=== PATIENT | female | born 1975 | race African-American/Black ===

== ENCOUNTER 2021-10-09 10:02 | Inpatient (IN) ==
[2021-10-03 12:25] LABS: Amorphous Crystals,Urine Many /HPF (Few); Bilirubin,Urine Negative (Negative); Blood, Urine Negative (Negative); Glucose,Urine (UA) Negative (Negative); Ketones,Urine Negative (Negative); Nitrite,Urine Negative (Negative); Protein,Urine Negative; Urine Appearance CLOUDY (Clear); Urine Color Yellow (Yellow); Urine Specific Gravity 1.028 (1.001-1.035); Urine Urobilinogen < 2.0 EU/DL (<2.0)
[2021-10-03 12:43] LABS: Albumin 3.1 G/DL (3.4-5.0); Bilirubin,Total 0.5 MG/DL (0.20-1.00); Calcium 9.1 MG/DL (8.5-10.1); Osmolality,Calculated 281.3 MOS/KG (273-304); Risk Ratio 2.32; Total Protein 7.2 G/DL (6.4-8.2); VLDL Cholesterol 12.2 MG/DL
[2021-10-03 12:45] LABS: Basophils % 0.5 % (0.0-0.8); Eosinophils # 0.1 10*3/uL (0.0-0.87); Eosinophils % 1.6 % (0.00-10.9); Hematocrit 34.7 VOL% (35.7-47.0); Hemoglobin 9.8 GM/DL (12.0-16.0); Immature Granulocytes % 0.4 %; Immature Granulocytes Absolute 0.03 #; Lymphocytes # 2.4 10*3/uL (1.4-4.0); Lymphocytes % 29.5 % (21.3-54.2); Mean Corpuscular HGB Conc 28.2 GM/DL (32-36); Mean Corpuscular Volume 74.3 FL (87-102); Mean Platelet Volume 9.6 FL (9.6-12.0); Monocytes % 5.3 % (1.7-12.7); Neutrophils % 62.7 % (38.7-73.9); Platelet Count 361 T/CUMM (130-400); Red Blood Count 4.67 MC/CUMM (3.8-5.5); Red Cell Distribution Width 15.9 % (9.3-17.3)
[2021-10-03 12:48] LABS: Anisocytosis 1+; Hypochromia 1+; Microcytosis 1+; Polychromasia 1+; Target Cells Few
[2021-10-03 12:49] LABS: Platelet Estimate Normal
[2021-10-03 13:14] LABS: HIV Antigen/Antibody Result Nonreactive (Nonreactive)
[~2021-10-09 10:02] MED LIST: AMPICILLIN/SULBACTAM 3,000 MG in SODIUM CHLORIDE 0.9% 100 ML IV ONE; LACTATED RINGERS 1,000 ML IV SCH
[2021-10-09] MEDS ORDERED: FAMOTIDINE 20 MG TABLET PO ONE (10:51)
[2021-10-09] MEDS ORDERED: DIAZEPAM 5 MG TABLET PO ONE (10:51)
[2021-10-09] MEDS ORDERED: propofoL 200 MG/20 ML VIAL IV ONE (13:48)
[2021-10-09] MEDS ORDERED: ROCURONIUM 50 MG/5 ML VIAL IV ONE (13:48)
[2021-10-09] MEDS ORDERED: LIDOCAINE 2% 5 ML VIAL ONE (13:48)
[2021-10-09] MEDS ORDERED: fentaNYL 100 MCG/2 ML VIAL ONE ×2 (13:49→14:43)
[2021-10-09] MEDS ORDERED: MIDAZOLAM 2 MG/2 ML VIAL ONE (13:50)
[2021-10-09] MEDS ORDERED: fentaNYL 250 MCG/5 ML VIAL ONE (14:04)
[2021-10-09] MEDS ORDERED: SCOPOLAMINE 1.5 MG PATCH TRANSDERM ONE (14:13)
[2021-10-09] MEDS ORDERED: ACETAMINOPHEN INJ 1,000 MG/100 ML VIAL IV ONE (14:33)
[2021-10-09] MEDS ORDERED: DEXAMETHASONE 4 MG/1 ML VIAL ONE (14:33)
[2021-10-09] MEDS ORDERED: ONDANSETRON 4 MG/2 ML VIAL ONE ×2 (14:33→16:34)
[2021-10-09] MEDS ORDERED: LABETALOL 20 MG/4 ML SYRINGE IV ONE (15:02)
[2021-10-09] MEDS ORDERED: GLYCOPYRROLATE 0.4 MG/2 ML VIAL ONE (15:51)
[2021-10-09] MEDS ORDERED: NEOSTIGMINE 10 MG/10 ML VIAL ONE (15:51)
[2021-10-09] MEDS ORDERED: BISACODYL 10 MG SUPP RECTAL PRN (16:34)
[2021-10-09] MEDS ORDERED: BENZOCAINE/MENTHOL LOZENGE 18/BOX PO PRN (16:34)
[2021-10-09] MEDS ORDERED: MAGNESIUM HYDROXIDE SUSP 30 ML UDCUP PO PRN (16:34)
[2021-10-09] MEDS ORDERED: HYDROmorphone 2 MG/1 ML VIAL ONE (16:34)
[2021-10-09] MEDS ORDERED: ONDANSETRON 4 MG/2 ML VIAL IV PRN ×2 (16:34→16:35)
[2021-10-09] MEDS ORDERED: IBUPROFEN 800 MG TABLET PO PRN (16:34)
[2021-10-09] MEDS ORDERED: ACETAMINOPHEN 325 MG TABLET PO PRN (16:34)
[2021-10-09] MEDS ORDERED: HYDROmorphone 2 MG/1 ML VIAL IV PRN (16:35)
[2021-10-09] MEDS: HYDROmorphone 2 MG/1 ML VIAL IV PRN ×4 (16:35→17:05)
[2021-10-09] MEDS ORDERED: KETOROLAC 30 MG/1 ML VIAL ONE (16:39)
[2021-10-09] MEDS ORDERED: LACTATED RINGERS 1,000 ML IV SCH (17:00)
[2021-10-09 17:09] LABS: Bacteria,Urine Occasional /HPF (Few); Bilirubin,Urine Negative (Negative); Blood, Urine Negative (Negative); Glucose,Urine (UA) Negative (Negative); Ketones,Urine 5 mg/dL (Negative); Mucus,Urine Many /LPF (Occasional); Nitrite,Urine Negative (Negative); Protein,Urine 30 MG/DL; RBC,Urine 2 /HPF (0-4); Squamous Epithelial Cell,Urine Occasional /HPF (0-10); Urine Appearance Slightly Hazy (Clear); Urine Color Yellow (Yellow); Urine Specific Gravity 1.028 (1.001-1.035); Urine Urobilinogen < 2.0 EU/DL (<2.0)
[2021-10-09 17:16] LABS: Basophils % 0.3 % (0.0-0.8); Eosinophils % 0.3 % (0.00-10.9); Hematocrit 29.3 VOL% (35.7-47.0); Hemoglobin 8.4 GM/DL (12.0-16.0); Immature Granulocytes % 0.7 %; Immature Granulocytes Absolute 0.09 #; Lymphocytes # 1.5 10*3/uL (1.4-4.0); Lymphocytes % 10.9 % (21.3-54.2); Mean Corpuscular HGB Conc 28.7 GM/DL (32-36); Mean Corpuscular Volume 73.8 FL (87-102); Mean Platelet Volume 10.2 FL (9.6-12.0); Monocytes % 1.8 % (1.7-12.7); NRBC # 0.02 10*3/uL; Platelet Count 304 T/CUMM (130-400); Red Blood Count 3.97 MC/CUMM (3.8-5.5); Red Cell Distribution Width 16.1 % (9.3-17.3); White Blood Count 13.6 T/CUMM (4-12)
[2021-10-09] MEDS ORDERED: ceFAZolin 2,000 MG/50 ML DUPLEX IV ONE (22:03)
[2021-10-09] MEDS ORDERED: SODIUM CHLORIDE 0.9% 100 ML IV ONE (22:03)
[2021-10-09] MEDS: ceFAZolin 2,000 MG/50 ML DUPLEX IV SCH (22:32)
[2021-10-10 00:43] LABS: Hematocrit 27.4 VOL% (35.7-47.0)
[2021-10-10] MEDS: KETOROLAC 30 MG/1 ML VIAL IV PRN ×2 (01:38→06:45)
[2021-10-10] MEDS ORDERED: ceFAZolin 2,000 MG/50 ML DUPLEX IV ONE (06:30)
[2021-10-10] MEDS ORDERED: SODIUM CHLORIDE 0.9% 100 ML IV ONE (06:30)
[2021-10-10] MEDS: ceFAZolin 2,000 MG/50 ML DUPLEX IV SCH (06:46)
[2021-10-10] MEDS: METOCLOPRAMIDE 10 MG TABLET PO SCH ×3 (08:13→23:35)
[2021-10-10] MEDS: DOCUSATE SODIUM 100 MG CAPSULE PO PRN ×2 (08:13→20:52)
[2021-10-10] MEDS: SIMETHICONE CHEW 80 MG TABLET PO PRN ×2 (08:13→16:47)
[2021-10-10 08:25] LABS: Basophils % 0.1 % (0.0-0.8); Eosinophils % 0.1 % (0.00-10.9); Hematocrit 26.4 VOL% (35.7-47.0); Hemoglobin 7.5 GM/DL (12.0-16.0); Immature Granulocytes % 0.3 %; Immature Granulocytes Absolute 0.03 #; Lymphocytes # 1.8 10*3/uL (1.4-4.0); Lymphocytes % 16.7 % (21.3-54.2); Mean Corpuscular HGB Conc 28.4 GM/DL (32-36); Mean Platelet Volume 9.5 FL (9.6-12.0); Monocytes % 7.7 % (1.7-12.7); Neutrophils % 75.1 % (38.7-73.9); Platelet Count 302 T/CUMM (130-400); Red Blood Count 3.52 MC/CUMM (3.8-5.5); Red Cell Distribution Width 16.3 % (9.3-17.3); White Blood Count 11.1 T/CUMM (4-12)
[2021-10-10] MEDS: hydroCHLOROthiazide 25 MG TABLET PO SCH (16:46)
[2021-10-10] MEDS ORDERED: hydroCHLOROthiazide 25 MG TABLET PO SCH (19:51)
[2021-10-10] MEDS: FERROUS SULFATE 325 MG TABLET PO SCH (20:52)
[2021-10-11] MEDS: hydroCHLOROthiazide 25 MG TABLET PO SCH (08:12)
[2021-10-11] MEDS: METOCLOPRAMIDE 10 MG TABLET PO SCH (08:12)
[2021-10-11] MEDS: DOCUSATE SODIUM 100 MG CAPSULE PO PRN (08:12)
[2021-10-11] MEDS: FERROUS SULFATE 325 MG TABLET PO SCH (08:12)
[2021-10-11] MEDS: SIMETHICONE CHEW 80 MG TABLET PO PRN (08:13)
[2021-10-11] MEDS ORDERED: SODIUM CHLORIDE 0.9% 1,000 ML IV PRN (09:48)
[2021-10-11] MEDS ORDERED: MAGNESIUM CITRATE 300 ML BOTTLE PO ONE (09:48)
[2021-10-11 13:07] VITALS: BP 125/57
== END 2021-10-11 14:50 | disposition home or self-care (01) | DRG 742 ==
LOC: N.OR 10:02 → N.SDSINP 10:04 → EDSTATUS 13:30 → N.OB 16:33
PROVIDERS: ADMIT Obstetrics & Gynecology; ATTEND Obstetrics & Gynecology